=== PATIENT | female | born 1990 | race Caucasian/White ===

== ENCOUNTER 2016-09-26 10:35 | Outpatient (CLI) | payer MEDICAID | END 2016-09-26 10:36 | disposition home or self-care (01) | DX: R55 Syncope and collapse (principal) ==

== ENCOUNTER 2016-10-06 08:29 | Outpatient (CLI) | payer MEDICAID | END 2016-10-06 08:30 | disposition home or self-care (01) | DX: R55 Syncope and collapse (principal) ==

== ENCOUNTER 2016-12-15 20:24 | Emergency (ER) | payer MEDICAID ==
[2016-12-15] MEDS ORDERED: TETANUS/DIPHTHERIA/PERTUSSIS 0.5 ML SYRINGE IM ONE ×2 (21:38→21:47)
[2016-12-15] MEDS ORDERED: LIDOCAINE 1%-EPI 1:100000 20 ML MDV SUBQ STA (21:38)
[2016-12-15] MEDS ORDERED: LIDOCAINE 1%-EPI 1:100000 20 ML MDV ONE (21:45)
== END 2016-12-15 22:20 | disposition home or self-care (01) ==
DX: S61.411A Laceration without foreign body of right hand, initial encounter (principal); W45.8XXA Other foreign body or object entering through skin, initial encounter; Z23 Encounter for immunization

== ENCOUNTER 2018-01-01 09:06 | Outpatient (CLI) | payer MEDICAID ==
[2018-01-02 15:32] LABS: HIV AG/AB 4TH GEN NON-REACTIVE (NON-REACTIVE)
[2018-01-03 10:41] LABS: HSV 2 IGG TYPE SPECIFIC AB <0.90 index
== END 2018-01-01 09:07 | disposition home or self-care (01) ==
LOC: LAB.WCP 09:06
PROVIDERS: ATTEND Physician Assistant Medical
DX: Z20.2 Contact with and (suspected) exposure to infections with a predominantly sexual mode of transmission (principal)
CPT/HCPCS: 36415; 81599; 86592; 86695; 86696; 87389; 87491; 87591